=== PATIENT | female | born 1985 | race Caucasian/White ===

== ENCOUNTER 2016-11-04 05:00 | Inpatient (IN) | payer OTHER ==
[2016-11-04] MEDS ORDERED: DEXTROSE 5%-LACTATED RINGERS 1,000 ML IV ONE (06:10)
[2016-11-04 06:38] VITALS: BMI 33.0
[2016-11-04 06:51] LABS: BASOPHIL 0.3 % (0-2.0); EOSINOPHIL 1.3 % (0-4.5); MCH 30.7 pg (25.7-33.7); MCHC 34.4 g/dl (32.0-36.0); MEAN CELL VOLUME 89.1 fl (80-96); MEAN PLT VOLUME 8.1 fl (7.5-11.1); NEUTROPHILS 71.9 % (42.8-82.8); PLATELET COUNT 257 K/MM3 (134-434); RDW 14.8 % (11.6-15.6); WHITE BLOOD COUNT 9.9 K/mm3 (4.0-10.0)
[2016-11-04] MEDS ORDERED: ELECTROLYTE-148 SOLN 1,000 ML IV SCH (07:15)
[2016-11-04 07:19] LABS: CALCIUM 9.2 mg/dL (8.5-10.1); COCKROFT - GAULT 200.8975; CREATININE 0.5 mg/dL (0.55-1.02)
[2016-11-04 07:26] LABS: INR 1.08 (0.82-1.09); PROTHROMBIN TIME (PATIENT) 11.9 SEC (9.98-11.88)
[2016-11-04 07:29] LABS: ACTIVATED PTT 26.6 SECONDS (26.9-34.4)
--- NOTE | 2016-11-04 08:50 | HP ---
Past Medical History - Primary Care Physician PCP:: Bárbara Olson - Admission Chief Complaint: 31 yrs , 40.1 weeks iup c/o onset LP since 2.30 am History of Present Illness: PNC at [address] [place] [address] . wt gain 29 lbs Work UP : O Pos, Rpr nr, Hbsag neg, Rubella pos, Quantiferon neg, Hiv neg, Gbs neg. pt [facility]leed from [facility], was instructed to go for Zika Virus testing, she did not do . 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 No: Seizure Cardiovascular: No: HTN, Murmur Pulmonary: No: Asthma Renal/: Yes: UTI (05/2016) ...: 2 ...Para: 1 (05/26/15 7'3" [facility] ) ...Term: 1 ...: 0 ...Spon : 0 ...Induced : 0 ...Multiple Gestation: 0 ...LMP: 01/28/16 ... Weeks Gestation by Dates: 40.1 ...EDC by Dates: 11/03/16 ...EDC by Sono: 11/03/16 Heme/Onc: No: Anemia Infectious Disease: No: HIV, STD's Psych: No: Addictions, Anxiety, Depression Endocrine: No: Diabetes Mellitus, Hyperthyroidism, Hypothyroidism - Past Surgical History Past Surgical History: Yes: None Hx Myomectomy: No Hx Transabdominal Cerclage: No - Smoking History Smoking history: Unknown if ever smoked Have you smoked in the past 12 months: No - Alcohol/Substance Use Hx Alcohol Use: No Home Medications - Allergies Allergies/Adverse Reactions: Allergies Allergy/AdvReac Type Severity Reaction Status Date / Time No Known Drug Allergies Allergy Verified 11/04/16 08:46 SEAFOOD Allergy Mild Itching Uncoded 11/04/16 08:46 - Home Medications Home Medications: Ambulatory Orders Vitamins (Sjr) - 1 tab PO DAILY 04/14/15 Physical Exam - Maternity Vital Signs: Vital Signs Temperature 97.9 F 11/04/16 07:00 Pulse Rate 72 11/04/16 07:00 Respiratory Rate 20 11/04/16 07:00 Blood Pressure 123/77 11/04/16 07:00 O2 Sat by Pulse Oximetry (%) Constitutional: Yes: Well Nourished, Moderate Distress Eyes: Yes: WNL HENT: Yes: WNL Neck: Yes: WNL Cardiovascular: Yes: WNL, Regular Rate and Rhythm Lungs: Clear to auscultation Breast(s): Yes: WNL - Abdominal Exam/OB Fundal Height: 40 Number of Fetuses: Single Presentation: Vertex Contractions: Yes Regularity: Regular Intensity: Moderate (3-5 min) Monitor Mode: External Heart Rate (range): 130-150 Heart Rate Location: [facility] Category: I Accelerations: Uniform Decelerations: None - Vaginal Exam/OB Vaginal Bleediing: No Dilatation (cm): 5 Effacement (%): 100 Amniotic Membrane Status: Intact Presentation: Vertex/Position (exam at 7.00am) Station: -2 (-2/-1) - Physical Exam Musculoskeletal: Yes: WNL Extremities: Yes: WNL. No: Calf Tenderness Edema: Yes Edema: LLE: 1+, RLE: 1+ Deep Tendon Reflex Grade: Normal +2 - Labs Lab Results: CBC, BMP 11/04/16 06:05 11/04/16 06:05 Problem List - Problems (1) 40 weeks gestation of Code(s): Z3A.40 - 40 WEEKS GESTATION OF (2) Labor established Code(s): AMF3325 - Assessment/Plan 31 yrs , 40.1 weeks in labor, Gbs neg Plan Trial vag delivery 7.55am Epidural was given 8.10 am SROM clear fluid 9.30 am Fully dialted ,100 % Vx +2
[2016-11-04] MEDS ORDERED: FENTANYL/BUPIVACAINE/NS/PF - PCEA - 50 ML DISP.SYRIN EP SCH (09:15)
[2016-11-04] MEDS: D5W-LR W/ 20 UNITS OXYTOCIN 1,000 ML IV SCH ×2 (10:08→11:00)
[2016-11-04] MEDS ORDERED: BENZOCAINE 28 GM HEMORRHOIDAL OINTMENT TP PRN (10:43)
[2016-11-04] MEDS ORDERED: BENZOCAINE 20% 57 GM BOTTLE TP PRN (10:43)
[2016-11-04] MEDS ORDERED: oxyCODONE HCL 5 MG TABLET PO PRN (10:43)
[2016-11-04] MEDS ORDERED: WITCH HAZEL 50% (TUCKS) 40 PAD/JAR PAD TP PRN (10:43)
[2016-11-04] MEDS ORDERED: BISACODYL 10 MG SUPP.RECT RC PRN (10:43)
[2016-11-04] MEDS ORDERED: METHYLERGONOVINE MALEATE 0.2 MG/1 ML AMP IM PRN (10:43)
--- NOTE | 2016-11-04 10:49 | PN ---
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 PNC at [address] [place] [address] intrapartum course uneventful
[2016-11-04] MEDS: IBUPROFEN 600 MG TABLET (FP) PO PRN (12:47)
[2016-11-04] MEDS: FERROUS SO4 325 MG TABLET (FP) PO SCH (18:52)
[2016-11-05 07:28] LABS: BASOPHIL 0.2 % (0-2.0); EOSINOPHIL 1.5 % (0-4.5); MCH 30.1 pg (25.7-33.7); MCHC 33.7 g/dl (32.0-36.0); MEAN CELL VOLUME 89.1 fl (80-96); MEAN PLT VOLUME 7.8 fl (7.5-11.1); PLATELET COUNT 211 K/MM3 (134-434); RDW 14.2 % (11.6-15.6); WHITE BLOOD COUNT 13.7 K/mm3 (4.0-10.0)
--- NOTE | 2016-11-05 07:46 | PN ---
Post Progress Note - Subjective Subjective: no complains Post Day: 1 Type of Delivery: Vital Signs: Vital Signs Temperature 97.8 F 11/05/16 05:12 Pulse Rate 69 11/05/16 05:12 Respiratory Rate 18 11/05/16 05:12 Blood Pressure 108/60 11/05/16 05:12 O2 Sat by Pulse Oximetry (%) 99 11/04/16 09:40 Breast Exam: Yes: Soft, Other (BF ). No: Engorged Uterus: Yes: Fundus Firm, Fundus below umbilicus, Non-tender Lochia: Yes: Rubra Lochia, amount: Moderate Extremities: Yes: Edema. No: Calf tenderness Perineum: Yes: Laceration - Labs Labs: CBC WBC 13.7 K/mm3 (4.0-10.0) H D 11/05/16 06:25 RBC 3.79 M/mm3 (3.60-5.2) 11/05/16 06:25 Hgb 11.4 GM/dL (10.7-15.3) D 11/05/16 06:25 Hct 33.7 % (32.4-45.2) 11/05/16 06:25 MCV 89.1 fl (80-96) 11/05/16 06:25 MCHC 33.7 g/dl (32.0-36.0) 11/05/16 06:25 RDW 14.2 % (11.6-15.6) 11/05/16 06:25 Plt Count 211 K/MM3 (134-434) 11/05/16 06:25 MPV 7.8 fl (7.5-11.1) 11/05/16 06:25 Neutrophils % 77.0 % (42.8-82.8) 11/05/16 06:25 Lymphocytes % 15.2 % (8-40) D 11/05/16 06:25 Monocytes % 6.1 % (3.8-10.2) 11/05/16 06:25 Eosinophils % 1.5 % (0-4.5) 11/05/16 06:25 Basophils % 0.2 % (0-2.0) 11/05/16 06:25 Problem List - Problems (1) 40 weeks gestation of Code(s): Z3A.40 - 40 WEEKS GESTATION OF (2) Labor established Code(s): QVJ3995 - Assessment/Plan stable. discharge tomorrow.
[2016-11-05] MEDS: FERROUS SO4 325 MG TABLET (FP) PO SCH ×2 (08:38→18:01)
[2016-11-05] MEDS: IBUPROFEN 600 MG TABLET (FP) PO PRN ×2 (09:52→18:05)
[2016-11-05] MEDS: ACETAMINOPHEN 325 MG TABLET (FP) PO PRN ×2 (09:52→18:05)
[2016-11-05] MEDS: PRENATAL VITAMINS W/ FOLIC ACID TABLET (FP) PO SCH (09:52)
[2016-11-05] MEDS ORDERED: INFLUENZA VACCINE 45 MCG/0.5 ML (MDV 16-17) IM ONE (10:00)
[2016-11-05] MEDS ORDERED: DIPHTH,PERTUSS(ACELL),TET 0.5 ML DISP.SYRIN IM ONE (15:00)
[2016-11-05] MEDS ORDERED: INFLUENZA VACCINE 60 MCG/0.5 ML (P/F DISP.SYRIN 16-17) IM ONE (15:00)
[2016-11-05] MEDS ORDERED: SENNOSIDES/DOCUSATE COMBO (SENNA PLUS) TABLET (UD) PO PRN (22:00)
--- NOTE | 2016-11-06 00:11 | PN ---
Post Progress Note Post Day: 2 Type of Delivery: Vital Signs: Vital Signs Temperature 97.6 F 11/05/16 21:08 Pulse Rate 78 11/05/16 21:08 Respiratory Rate 20 11/05/16 21:08 Blood Pressure 116/62 11/05/16 21:08 O2 Sat by Pulse Oximetry (%) 99 11/04/16 09:40 Breast Exam: Yes: Soft Uterus: Yes: Fundus Firm Abdomen/GI: Yes: Abdomen soft Lochia: Yes: Rubra Lochia, amount: Small Extremities: Yes: Calves non-tender Perineum: Yes: Intact Activity: Ambulating - Labs Labs: CBC WBC 13.7 K/mm3 (4.0-10.0) H D 11/05/16 06:25 RBC 3.79 M/mm3 (3.60-5.2) 11/05/16 06:25 Hgb 11.4 GM/dL (10.7-15.3) D 11/05/16 06:25 Hct 33.7 % (32.4-45.2) 11/05/16 06:25 MCV 89.1 fl (80-96) 11/05/16 06:25 MCHC 33.7 g/dl (32.0-36.0) 11/05/16 06:25 RDW 14.2 % (11.6-15.6) 11/05/16 06:25 Plt Count 211 K/MM3 (134-434) 11/05/16 06:25 MPV 7.8 fl (7.5-11.1) 11/05/16 06:25 Neutrophils % 77.0 % (42.8-82.8) 11/05/16 06:25 Lymphocytes % 15.2 % (8-40) D 11/05/16 06:25 Monocytes % 6.1 % (3.8-10.2) 11/05/16 06:25 Eosinophils % 1.5 % (0-4.5) 11/05/16 06:25 Basophils % 0.2 % (0-2.0) 11/05/16 06:25 Assessment/Plan as [place] home today
[2016-11-06 07:46] VITALS: BP 113/67; PULSE 82; TEMP 98.1
[2016-11-06] MEDS: FERROUS SO4 325 MG TABLET (FP) PO SCH (08:48)
[2016-11-06] MEDS: PRENATAL VITAMINS W/ FOLIC ACID TABLET (FP) PO SCH (09:09)
[2016-11-06] MEDS: ACETAMINOPHEN 325 MG TABLET (FP) PO PRN (09:09)
[2016-11-06] MEDS: IBUPROFEN 600 MG TABLET (FP) PO PRN (09:09)
--- NOTE | 2016-11-07 18:43 | DS ---
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 No: Calf Tenderness Edema: Yes Edema: LLE: Trace, RLE: Trace Integumentary: Yes: WNL Neurological: Yes: WNL ...Motor Strength: WNL Psychiatric: Yes: WNL, Alert, Oriented Labs: CBC, BMP 11/05/16 06:25 11/04/16 06:05 Delivery - Delivery Vaginal Delivery: No Problems, Spontaneous Type of Anesthesia: Epidural Episiotomy/Laceration: Perineal Extension/lac, 1st degree (sutured with vicryl # 3/0) EBL (cc): 300 (catheter urine out put 300 ml ariadna color ) Delivery, Single - Stages of Labor Date 1st Stage Initiatied: 11/04/16 Time 1st Stage Initiated: 02:30 Date 2nd Stage Initiated: 11/04/16 Time 2nd Stage Initiated: 09:35 Date of Delivery: 11/04/16 Time of Delivery: 10:00 Time Placenta Delivered: 10:08 Placenta: Yes: Expressed, Uterine Exploration - Condition of Driller Operator/Lunch Counter Manager Present: No Gender: Female Weight: 7 lb 8 oz Position: Left, OA Total Hours ROM (Hrs/Mins): 1 HOUR 50 MINUTES - 1 Minute Total Score: 9 5 Minutes Total Score: 9 - Feeding Plan Initial Plan: Exclusive throughout hospitalization Remarks - Remarks Remarks: 31 yrs , 40.1 weeks , in labor, gbs neg. PNC at [address] [place] [address] intrapartum course uneventful . pp course uneventful. discharge 11/06/16 Discharge Summary Reason For Visit: LABOR ADMIT Condition: Stable - Instructions Diet, Activity, Other Instructions: Post Instructions DIET: Continue good diet high in protein, calcium, and iron rich foods. Drink at least eight (8) glasses of water daily in addition to other fluids. ct Regular diet _ MEDICATIONS: Continue vitamins and iron as previously directed. Motrin and Tylenol may be taken for minor discomfort. ACTIVITY: Mild to moderate exercise may be started in two (2) weeks. Take frequent rest periods. Resume normal activity after six (6) week check up. WOUND CARE OF OPERATIVE SITE: Continue use of perineal bottle until vaginal discharge stops. Keep area clean. Shower daily. Keep abdominal wound dry. Report any drainage or redness to physician. Tub baths, tampons and douches are not permitted for [address] Breast feeding & or Bottle feeding BREAST CARE: (For those that are not breast feeding): If engorgement occurs: Wear tight fitting bra. Take Tylenol or Motrin for pain. Apply cold packs (ice in bags to each breast ) FAMILY PLANNING: There are many control alternatives to pursue and they should be discussed at your first office visit. You may resume sexual activity after your six (6) week check up. (Remember, breast feeding is not a contraceptive) NEXT PHYSICIAN APPOINTMENT: Be certain to call for a six (6) week appointment, unless otherwise directed. Call Clinic or got to Emergency Dept if you have any of the following: Heavy vaginal bleeding Painful urination Leg pain Unusual odor noted to vaginal bleeding High fever Red streaking noted on breast Referrals: Bárbaar Olson MD [Staff Physician] - Disposition: HOME - Home Medications Comprehensive Discharge Medication List: Ambulatory Orders Vitamins (Sjr) - 1 tab PO DAILY 04/14/15 Acetaminophen [Tylenol .Regular Strength -] 650 mg PO Q3H PRN #0 tablet Ibuprofen [Motrin -] 200 mg PO Q4H PRN #0 tablet 11/05/16
== END 2016-11-06 12:20 | disposition home or self-care (01) | DRG 560 ==
LOC: JDEL 05:00 → JLDR 05:45 → J3W 11:29
PROVIDERS: ADMIT Obstetrics & Gynecology; ATTEND Obstetrics & Gynecology
PROC: 0HQ9XZZ Repair Perineum Skin, External Approach (ICD-10-PCS; principal; 2016-11-04)
PROC: 10E0XZZ Delivery of Products of Conception, External Approach (ICD-10-PCS; 2016-11-04)
DX: O70.0 First degree perineal laceration during delivery (principal); Z3A.40 40 weeks gestation of pregnancy; Z37.0 Single live birth
CPT/HCPCS: 36415; 59025; 59409; 80048; 85025; 85610; 85730; 86593; 86850; 86900; 86901; 90686; 90715; G0008

== ENCOUNTER 2018-09-01 12:52 | Emergency (ER) | payer OTHER ==
[2018-09-01 13:17] VITALS: BP 117/64; PULSE 66; TEMP 98.6; BMI 25.4
--- NOTE | 2018-09-01 13:53 | PDOC ---
History of Present Illness - General Chief Complaint: Eye Problem Stated Complaint: PINK EYE Time Seen by Provider: 09/01/18 13:41 History Source: Patient Exam Limitations: No Limitations - History of Present Illness Initial Comments: 09/01/18 13:54 Had faults eyelash extensions placed in the [place] one week ago and since that time has developed swelling, redness, and tearing to the right eye. States visual acuity is unchanged, is mildly painful, no itching purulent drainage. Timing/Duration: 1 week Severity: mild, moderate Past History - Travel Traveled outside of the country in the last 30 days: No Close contact w/someone who was outside of country & ill: No - Past Medical History Allergies/Adverse Reactions: Allergies Allergy/AdvReac Type Severity Reaction Status Date / Time No Known Drug Allergies Allergy Verified 09/01/18 13:14 SEAFOOD Allergy Mild Itching Uncoded 09/01/18 13:14 Home Medications: Ambulatory Orders Tobramycin 0.3% Ophth Soln [Tobrex Ophthalmic Solution -] 2 drop OS QID #1 drops 09/01/18 Asthma: No Cancer: No Cardiac Disorders: No COPD: No Diabetes: No HTN: No Seizures: No Thyroid Disease: No - Reproductive History (#): 1 Para: 0 Spontaneous : 0 - Immunization History Immunization Up to Date: Yes - Suicide/Smoking/Psychosocial Hx Smoking History: Never smoked Have you smoked in the past 12 months: No Hx Alcohol Use: No Drug/Substance Use Hx: No Substance Use Type: None Hx Substance Use Treatment: No Review of Systems - Review of Systems Able to Perform ROS?: Yes Is the patient limited Kazakh proficient: Yes Constitutional: Yes: Symptoms Reported, See HPI, Malaise. No: Fever HEENTM: Yes: Symptoms Reported, See HPI, Blurred Vision Respiratory: No: Symptoms reported Integumentary: No: Symptoms Reported All Other Systems: Reviewed and Negative *Physical Exam - Vital Signs Last Vital Signs Temp Pulse Resp BP Pulse Ox 98.6 F 66 18 117/64 99 09/01/18 13:15 09/01/18 13:15 09/01/18 13:15 09/01/18 13:15 09/01/18 13:15 - Physical Exam General Appearance: Yes: Nourished, Appropriately Dressed, Apparent Distress, Mild Distress HEENT: positive: Normal ENT Inspection, TMs Normal, Pharynx Normal, Rhinorrhea. 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 We'll treat with tobramycin drops rest and follow-up with ophthalmology *DC/Admit/Observation/Transfer Diagnosis at time of Disposition: Conjunctivitis Qualifiers: Conjunctivitis type: acute Acute conjunctivitis type: unspecified Laterality: right Qualified Code(s): H10.31 - Unspecified acute conjunctivitis, right eye - Discharge Dispostion Disposition: HOME Condition at time of disposition: Stable Decision to Admit order: No - Prescriptions Prescriptions: Tobramycin 0.3% Ophth Soln [Tobrex Ophthalmic Solution -] 2 drop OS QID #1 drops - Referrals - Patient Instructions Printed Discharge Instructions: DI for Conjunctivitis Additional Instructions: Rest, avoid rubbing eyes Wash hands frequently as this is very contagious Wash hands, use eye drops as directed, wash hands after use Do not share eyedrops with other person to may become infected as this will infect them Tobramycin drops 2 drops to affected eye 4 times a day for 5 days Avoid contact with others until redness and discharge is gone from eyes. Followup with ophthalmology or private physician as needed - Post Discharge Activity Forms/Work/School Notes: Back to Work, Back to School
[2018-09-01] MEDS ORDERED: FLUORESCEIN NA 1 EA STRIP OS ONE (13:54)
[2018-09-01] MEDS ORDERED: FLUORESCEIN NA 1 EA STRIP ONE (13:55)
[2018-09-01] MEDS ORDERED: TOBRAMYCIN 0.3% OPHTH SOLN 5 ML BOTTLE OD ONE (13:59)
[2018-09-01] MEDS ORDERED: TOBRAMYCIN 0.3% OPHTH SOLN 5 ML BOTTLE ONE (14:02)
== END 2018-09-01 14:05 | disposition home or self-care (01) ==
LOC: JERFT 12:52
DX: H10.31 Unspecified acute conjunctivitis, right eye (principal)
CPT/HCPCS: 99281-25

== ENCOUNTER 2018-09-04 15:02 | Emergency (ER) | payer OTHER ==
--- NOTE | 2018-09-04 15:12 | PDOC ---
Rapid Medical Evaluation Time Seen by Provider: 09/04/18 15:11 Medical Evaluation: Allergies Allergy/AdvReac Type Severity Reaction Status Date / Time No Known Drug Allergies Allergy Verified 09/01/18 13:14 SEAFOOD Allergy Mild Itching Uncoded 09/01/18 13:14 09/04/18 15:11 I have performed a brief in-person evaluation of this patient. The patient presents with a chief complaint of: return visit for right eye irritation Pertinent physical exam findings:swollen lid with discharge I have ordered the following:nothing The patient will proceed to the ED for further evaluation. Discharge Disposition - Diagnosis Eye irritation - Referrals - Patient Instructions - Post Discharge Activity
[2018-09-04 15:17] VITALS: BP 110/66; PULSE 77; TEMP 98.6; BMI 28.7
--- NOTE | 2018-09-04 17:37 | PDOC ---
History of Present Illness - General Chief Complaint: Eye Problem Stated Complaint: RT EYE PROBLEM Time Seen by Provider: 09/04/18 15:11 History Source: Patient Exam Limitations: Clinical Condition - History of Present Illness Initial Comments: 09/04/18 17:39 Patient with no significant past medical history of present with complaint of persistent pinkeye in right eye with pressure in the right eye for 3 days now. Patient was seen 3 days ago for pinkeye and prescribed Tobrex eyedrops by patient report persistent redness and pressure in right eye. Patient denies headache, dizziness, nausea or vomiting. Patient denies floaters in the eye. Timing/Duration: other (4 days) Past History - Past Medical History Allergies/Adverse Reactions: Allergies Allergy/AdvReac Type Severity Reaction Status Date / Time No Known Drug Allergies Allergy Verified 09/01/18 13:14 SEAFOOD Allergy Mild Itching Uncoded 09/01/18 13:14 Home Medications: Ambulatory Orders Tobramycin 0.3% Ophth Soln [Tobrex Ophthalmic Solution -] 2 drop OS QID #1 drops 09/01/18 Methylprednisolone [Medrol Dose Ambrocio] 4 mg PO ASDIR #21 tablet 09/04/18 Asthma: Yes Cancer: No Cardiac Disorders: No COPD: No Diabetes: No HTN: No Seizures: No Thyroid Disease: No - Reproductive History (#): 1 Para: 0 Spontaneous : 0 - Immunization History Immunization Up to Date: Yes - Suicide/Smoking/Psychosocial Hx Smoking History: Never smoked Have you smoked in the past 12 months: No Information on smoking cessation initiated: No Hx Alcohol Use: No Drug/Substance Use Hx: No Substance Use Type: None Hx Substance Use Treatment: No Review of Systems - Review of Systems Able to Perform ROS?: Yes Is the patient limited Kiswahili proficient: No Constitutional: No: Malaise, Weakness HEENTM: Yes: Symptoms Reported, See HPI, Eye Pain (right eye), Blurred Vision, Recent change in vision. No: Tearing, Double Vision, Cataracts, Ear Pain, Ocular Prothesis, Ear Discharge, Nose Pain, Nose Congestion, Tinnitus, Nose Bleeding, Hearing Loss, Throat Pain, Throat Swelling, Mouth Pain, Dental Problems, Difficulty Swallowing, Mouth Swelling, Other Respiratory: No: Symptoms reported, See HPI, Cough, Orthopnea, Shortness of Breath, SOB with Exertion, SOB at Rest, Stridor, Wheezing, Productive cough, Hemoptysis, Other Cardiac (ROS): No: Symptoms Reported, See HPI, Chest Pain, Edema, Irregular Heart Rate, Lightheadedness, Palpitations, Syncope, Chest Tightness, Other ABD/GI: No: Diarrhea, Nausea, Vomiting Neurological: No: Headache, Numbness, Paresthesia, Unsteady Gait, Dizziness All Other Systems: Reviewed and Negative *Physical Exam - Vital Signs Last Vital Signs Temp Pulse Resp BP Pulse Ox 98.6 F 77 17 110/66 100 09/04/18 15:13 09/04/18 15:13 09/04/18 15:13 09/04/18 15:13 09/04/18 15:13 - Physical Exam Comments: 09/04/18 17:41 GENERAL: Well developed, well nourished. Awake and alert. No acute distress. HEENT: Moderately injected right conjunctiva. Normocephalic, atraumatic. PERRLA , EOMI. No left conjunctival pallor. Sclera are non-icteric. Moist mucous membranes. Oropharynx is clear. NECK: Supple. Full ROM. CARDIOVASCULAR: Regular rate and rhythm. No murmurs, rubs, or gallops. Distal pulses are 2+ and symmetric. PULMONARY: No evidence of respiratory distress. Lungs clear to auscultation bilaterally. No wheezing, rales or rhonchi. ABDOMINAL: Soft. Non-tender. Non-distended. No rebound or guarding. No organomegaly. Normoactive bowel sounds. MUSCULOSKELETAL Normal range of motion at all joints. NEUROLOGICAL: Alert, awake, appropriate. Gait is normal without ataxia. PSYCHIATRIC: Cooperative. Good eye contact. Appropriate mood General Appearance: Yes: Nourished, Appropriately Dressed. No: Apparent Distress Moderate Sedation - Procedure Monitoring Vital Signs: Procedure Monitoring Vital Signs Temperature 98.6 F 09/04/18 15:13 Pulse Rate 77 09/04/18 15:13 Respiratory Rate 17 09/04/18 15:13 Blood Pressure 110/66 09/04/18 15:13 O2 Sat by Pulse Oximetry (%) 100 09/04/18 15:13 Medical Decision Making - Medical Decision Making 09/04/18 17:43 09/04/18 17:39 Patient with no significant past medical history of present with complaint of persistent pinkeye in right eye with pressure in the right eye for 3 days now. Patient was seen 3 days ago for pinkeye and prescribed Tobrex eyedrops by patient report persistent redness and pressure in right eye. Patient denies headache, dizziness, nausea or vomiting. Patient denies floaters in the eye. Exam significant for from moderately injected right conjunctiva. Extraocular muscle intact. Pupils equal and refracted to light bilateral. Patient stable for discharge to continue as prescribed eyedrops and will admit to pack for anti -inflammatory effect with ophthalmology follow-up *DC/Admit/Observation/Transfer Diagnosis at time of Disposition: Eye irritation Conjunctivitis Qualifiers: Conjunctivitis type: acute Acute conjunctivitis type: unspecified Laterality: right Qualified Code(s): H10.31 - Unspecified acute conjunctivitis, right eye - Discharge Dispostion Disposition: HOME Condition at time of disposition: Stable Decision to Admit order: No - Prescriptions Prescriptions: Methylprednisolone [Medrol Dose Ambrocio] 4 mg PO ASDIR #21 tablet - Referrals Referrals: Yg Draper MD [Staff Physician] - - Patient Instructions Printed Discharge Instructions: Conjunctivitis Additional Instructions: Keep using prescribed eyedrops as prescribed. Take prescribed medication now and follow-up referred ophthalmology as soon as possible. Call tomorrow morning for follow-up appointment - Post Discharge Activity
== END 2018-09-04 17:43 | disposition home or self-care (01) ==
LOC: JERFT 15:02
DX: H10.31 Unspecified acute conjunctivitis, right eye (principal); J45.909 Unspecified asthma, uncomplicated
CPT/HCPCS: 99281-25